=== PATIENT | female | born 1985 | race Caucasian/White ===

== ENCOUNTER 2016-04-21 05:29 | Day surgery (SDC) | payer MEDICAID ==
[2016-04-18 16:55] VITALS: Ht 149.9 cm; Wt 55.1 kg
[~2016-04-21] VITALS: Ht 149.9 cm; Wt 55.1 kg
[2016-04-21] VITALS (8 sets, daily range): BP systolic 81–102; BP diastolic 46–67; PULSE 72–103; RESP 11–18
[~2016-04-21 05:29] MED LIST: CIPR500T4 PO; PREN-99 PO
[2016-04-21] MEDS ORDERED: LACTATED RINGER'S 1,000 ML IV SCH (05:30)
[2016-04-21 06:49] LABS: BASOPHILS % 0.5 % (0.0-2.0); EOSINOPHILS # 0.2 10^3/ul (0.0-0.5); EOSINOPHILS % 2.4 % (0.0-7.0); HEMATOCRIT 38.9 % (37.0-47.0); HEMOGLOBIN 13.2 g/dl (12.0-16.0); LYMPHOCYTES % 25.6 % (15.0-51.0); MEAN CORPUSCULAR HEMOGLOBIN 29.3 pg (29.0-33.0); MEAN CORPUSCULAR VOLUME 86.2 fl (82.0-101.0); MEAN PLATELET VOLUME 9.1 fl (7.4-10.4); MONOCYTE # 0.6 10^3/ul (0.3-0.9); MONOCYTES % 7.4 % (0.0-11.0); NEUTROPHIL # 4.9 10^3/ul (1.6-7.5); NEUTROPHILS % 64.1 % (39.0-77.0); PLATELET COUNT 346 10^3/UL (140-440); RED BLOOD COUNT 4.51 10^6/ul (4.20-5.40); RED CELL DISTRIBUTION WIDTH 16.1 % (11.5-14.5); UNCORRECTED WBC 7.7 10^3/ul (4.8-10.8); WHITE BLOOD COUNT 7.7 10^3/ul (4.8-10.8)
[2016-04-21 06:52] LABS: CONDITION 1; LH ANALYZER COMMENTS 1
[2016-04-21] MEDS ORDERED: PROPOFOL 20 ML ONE (07:13)
[2016-04-21] MEDS ORDERED: MIDAZOLAM 1 MG/ML 2 ML INJ ONE (07:14)
[2016-04-21] MEDS ORDERED: FENTAnyl 50 MCG/ML VIAL ONE (07:14)
[2016-04-21] MEDS ORDERED: KETOROLAC 30 MG INJ ONE (07:46)
[2016-04-21] MEDS ORDERED: DEXAMETHASONE 4 MG/ML 1 ML INJ ONE (07:46)
[2016-04-21] MEDS ORDERED: ONDANSETRON 4 MG INJ ONE (07:46)
[2016-04-21] MEDS ORDERED: METOCLOPRAMIDE 10 MG INJ ONE (07:46)
[2016-04-21] MEDS ORDERED: MEPERIDINE 25 MG INJ IV PRN (08:00)
[2016-04-21] MEDS ORDERED: ONDANSETRON 4 MG INJ IV PRN (08:00)
[2016-04-21] MEDS ORDERED: morphine (1 MG/ML) 10ML SYRINGE IV PRN ×3 (08:00)
[2016-04-21] MEDS ORDERED: EPHEDrine SULFATE 50 MG/5 ML SYG IV PRN (08:00)
[2016-04-21] MEDS ORDERED: HYDROmorphONE (0.2 MG/ML) 10ML SYG IV PRN ×3 (08:00)
[2016-04-21] MEDS ORDERED: DIPHENHYDRAMINE 50 MG INJ IV PRN (08:00)
[2016-04-21] MEDS ORDERED: MEPERIDINE 100 MG INJ ONE (08:05)
[2016-04-21] MEDS ORDERED: IBUPROFEN 600 MG TAB PO PRN (08:30)
--- NOTE | 2016-04-21 09:40 | PREOPHP ---
DATE OF ADMISSION: 04/21/2016 DATE OF PROCEDURE: 04/21/2016 HISTORY OF PRESENT ILLNESS: Ms. Sandra Feliciano is a 31-year-old 4, para 4 who desires permane nt surgical sterilization. PAST MEDICAL HISTORY: Anemia. MEDICATIONS: Iron. PAST SURGICAL HISTORY: None. OBSTETRICAL HISTORY: Vaginal deliveries x4, the last delivery was on 01/19/2016. GYNECOLOGIC HISTORY: Twelve, regular, 3 to 4 days. Denies any sexually transmitted diseases. Sexu ally active with 1 partner. SOCIAL HISTORY: Denies any smoking, drugs, or alcohol. FAMILY HISTORY: None. PHYSICAL EXAMINATION: HEENT: Within normal. LUNGS: CTA bilateral. CARDIOVASCULAR: S1, S2, regular rhythm. ABDOMEN: Soft, nontender, negative distention. EXTREMITIES: Negative edema. No calf tenderness. VAGINAL: Normal external genitalia. Cervix: Negative CMT, negative lesions. Adnexa: Negative ma ss, nontender bilateral. Fundus within normal limits. ASSESSMENT: Multiparous, desires permanent surgical sterilization. PLAN: Consent for hysteroscopic tubal occlusion by Essure implant with possible laparoscopic bilate ral tubal sterilization. Risks, benefits, and alternatives explained. All questions were answered. The patient was advised not to breastfeed the next 24 hours. Dictated By: SILVER POSADA/GABRIEL Conf#: [id number] DID#: [id number]
--- NOTE | 2016-04-22 14:12 | OPR ---
DATE OF OPERATION: 04/21/2016 PRIMARY DIAGNOSIS: A 31-year-old 4, para 4, desires permanent surgical sterilization. POSTOPERATIVE DIAGNOSIS: A 31-year-old 4, para 4, desires permanent surgical sterilization. PROCEDURE PERFORMED: Hysteroscopic tubal occlusion by Essure implant, lot #[id number]. SURGEON: Silver Gomez MD ADMINISTRATIVE RECEPTIONIST: None. FINDINGS: Bimanual, size within normal, position anteverted. Hysteroscopic view of the uterus adeq uate. [place] normal. Adhesion absent. Placement of 3 trailing coils on the left and 3 trailing coi ls on the right. ESTIMATED BLOOD LOSS: Minimal. SPECIMEN: None. COMPLICATIONS OF PROCEDURE: None. TYPE OF ANESTHESIA: General. DESCRIPTION OF PROCEDURE: After explaining the risks, benefits and alternatives, the patient had co nsent signed in chart. The patient was taken to the operating room where general anesthesia was obt ained without difficulty. The patient was then examined under anesthesia and found to have a small anteverted uterus with normal adnexa. She was then placed in a dorsal lithotomy position, and prepa red and draped in normal sterile fashion. A heavy weighted speculum was then placed in the patient' s vagina and the anterior lip of the cervix was grasped with a single-tooth tenaculum. A hysterosco pe was then entered into the uterine cavity and with findings noted above. Both tubal ostia were id entified. The delivery catheter was then inserted into the tubal ostia up to the black marker. The delivery catheter was retracted and device deployed. After 10 seconds, the catheter was detached f rom the device. The device was in good position with 3 trailing coils on the right side. The proce dure was repeated on the left side with 3 trailing coils. The procedure was completed. All instrum ents were removed from the patient's vagina. The patient tolerated procedure well. All the counts correct x2. Before discharge, the patient was given a prescription for a hysterosalpingogram in 3 months and bir th control use until hysterosalpingogram shows tubal occlusion. Dictated By: SILVER POSADA/GABRIEL Conf#: [id number] DID#: [id number]
== END 2016-04-21 10:13 | disposition home or self-care (01) ==
LOC: SDS 05:29
PROVIDERS: ATTEND Obstetrics & Gynecology
DX: Z30.2 Encounter for sterilization (principal)
CPT/HCPCS: 58565; 85025; 86850; 86900; 86901; A4264; J1100; J1885; J2175; J2250; J2405; J2765; J3010; Z7512; Z7610